=== PATIENT | female | born 1960 | race Caucasian/White ===

== ENCOUNTER 2018-03-19 14:27 | Outpatient (CLI) | payer BC | END 2018-03-19 14:28 | disposition home or self-care (01) | LOC: BICMAMMO 14:27 | PROVIDERS: ATTEND Internal Medicine | DX: Z12.31 Encounter for screening mammogram for malignant neoplasm of breast (principal); Z80.3 Family history of malignant neoplasm of breast | CPT/HCPCS: 77063; 77067 ==

== ENCOUNTER 2018-04-22 13:13 | Outpatient (CLI) | payer BC | END 2018-04-22 13:14 | disposition home or self-care (01) | LOC: BICMAMMO 13:13 | PROVIDERS: ATTEND Internal Medicine | DX: Z13.820 Encounter for screening for osteoporosis (principal); N92.4 Excessive bleeding in the premenopausal period | CPT/HCPCS: 77080 ==

== ENCOUNTER 2019-02-13 10:36 | Outpatient (CLI) | payer BC ==
--- NOTE | 2019-02-13 13:14 | MRI ---
EXAM: Right knee MRI without contrast: HISTORY: Right knee pain, internal derangement right knee COMPARISON: None FINDINGS: Multiplanar, multisequence MRI examination of the knees performed. Moderate joint effusion with distention of the suprapatellar recess. Generalized tricompartment carti shivani loss most marked involving the medial compartment and the femoral patellar compartment with some associated subchondral cystic changes of the patella evidence for chondromalacia patella. There is fairly prominent lateral patellar subluxation. Evidence for patellar trochlear dysplasia. No abnormal fat stranding in the superior lateral aspect of Hoffa's fat caliber. Nonspecific superficial infrapatellar fat stranding. Medial meniscus: Irregular posterior root tear Lateral meniscus: Unremarkable. Anterior cruciate ligament:Intact. Posterior cruciate ligament: Intact. Medial collateral ligament complex: Intact. Lateral collateral ligament complex: Intact. Quadriceps and patellar tendons: Intact. No evidence for acute osteochondral defect or abnormal marrow signal. IMPRESSION: Irregular posterior root tear of the medial meniscus. Joint effusion. Irregular cartilage loss includ ing the femoral patellar compartment with some chondromalacia patella and subchondral cystic changes. 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
== END 2019-02-13 10:37 | disposition home or self-care (01) ==
LOC: TBSIIMAG 10:36
PROVIDERS: ATTEND Orthopaedic Surgery
DX: M23.91 Unspecified internal derangement of right knee (principal); S83.241A Other tear of medial meniscus, current injury, right knee, initial encounter; M25.461 Effusion, right knee; S83.011A Lateral subluxation of right patella, initial encounter; M25.861 Other specified joint disorders, right knee

== ENCOUNTER 2019-03-20 14:56 | Outpatient (CLI) | payer BC ==
--- NOTE | 2019-03-20 15:22 | MMO ---
Bilateral MAMMO Bilat Screen [facility]. CLINICAL HISTORY: Patient is 58 years old and is seen for screening. The patient has no family history of breast cancer. The patient has no personal history of cancer. The patient has a history of bilateral Breast reduction in 1985 - benign. VIEWS: The views performed were: bilateral craniocaudal with tomosynthesis and bilateral mediolateral oblique with tomosynthesis. FILMS COMPARED: The present examination has been compared to prior imaging studies performed at [facility] on 03/11/2015, 03/15/2016, 03/18/2017 and 03/19/2018. MAMMOGRAM FINDINGS: The breasts are almost entirely fat. There are stable benign appearing calcifications seen in the right breast. There are no suspicious masses, suspicious calcifications, or new areas of architectural distortion. IMPRESSION: THERE IS NO MAMMOGRAPHIC EVIDENCE OF MALIGNANCY. A ROUTINE FOLLOW-UP MAMMOGRAM IN 1 YEAR IS RECOMMENDED. THE RESULTS OF THIS EXAM WERE SENT TO THE PATIENT. ACR BI-RADS Category 2 - Benign finding MAMMOGRAPHY NOTE: 1. A negative mammogram report should not delay a biopsy if a dominant of clinically suspicious mass is present. 2. Approximately 10% to 15% of breast cancers are not detected by mammography. 3. Adenosis and dense breasts may obscure an underlying neoplasm.
== END 2019-03-20 14:57 | disposition home or self-care (01) ==
LOC: BICMAMMO 14:56
PROVIDERS: ATTEND Internal Medicine
DX: Z12.31 Encounter for screening mammogram for malignant neoplasm of breast (principal)
CPT/HCPCS: 77063; 77067

== ENCOUNTER 2019-04-27 15:11 | Outpatient (CLI) | payer BC ==
--- NOTE | 2019-04-27 15:23 | RAD ---
EXAM: Two views chest PROVIDED CLINICAL HISTORY: Cough. 08/05/2014 COMPARISON: None FINDINGS: Cardiac silhouette and pulmonary vasculature are within normal limits. There is elevation of the lef t hemidiaphragm with gaseous distention of loops of bowel again noted beneath the left hemidiaphragm similar to prior exam. Lungs are clear. The osseous structures have a normal appearance . Chest is overall stable when compared to the prior exam. IMPRESSION: No acute cardiopulmonary process.
== END 2019-04-27 15:12 | disposition home or self-care (01) ==
LOC: BICRAD 15:11
PROVIDERS: ATTEND Internal Medicine
DX: R05 Cough (principal)
CPT/HCPCS: 71046

== ENCOUNTER 2020-03-23 14:17 | Outpatient (CLI) | payer BC ==
--- NOTE | 2020-03-23 14:58 | MMO ---
Bilateral MAMMO Bilat Screen [facility]. CLINICAL HISTORY: Patient is 59 years old and is seen for screening. The patient has the following family history of breast cancer: mother, at age 48, malignant (generic). The patient has no personal history of cancer. The patient has a history of bilateral Breast reduction in 1985 - benign. VIEWS: The views performed were: bilateral craniocaudal with tomosynthesis and bilateral mediolateral oblique with tomosynthesis. FILMS COMPARED: The present examination has been compared to prior imaging studies performed at [facility] on 03/15/2016, 03/18/2017, 03/19/2018 and 03/20/2019. This study has been interpreted with the assistance of computer-aided detection. MAMMOGRAM FINDINGS: The breasts are almost entirely fat. There are stable benign appearing calcifications seen in both breasts. There are no suspicious masses, suspicious calcifications, or new areas of architectural distortion. IMPRESSION: THERE IS NO MAMMOGRAPHIC EVIDENCE OF MALIGNANCY. A ROUTINE FOLLOW-UP MAMMOGRAM IN 1 YEAR IS RECOMMENDED. THE RESULTS OF THIS EXAM WERE SENT TO THE PATIENT. ACR BI-RADS Category 2 - Benign finding MAMMOGRAPHY NOTE: 1. A negative mammogram report should not delay a biopsy if a dominant of clinically suspicious mass is present. 2. Approximately 10% to 15% of breast cancers are not detected by mammography. 3. Adenosis and dense breasts may obscure an underlying neoplasm. Reported by: SURJIT CHESTER MD Electonically Signed: [id number]
== END 2020-03-23 14:18 | disposition home or self-care (01) ==
LOC: BICMAMMO 14:17
PROVIDERS: ATTEND Internal Medicine
DX: Z12.31 Encounter for screening mammogram for malignant neoplasm of breast (principal); Z80.3 Family history of malignant neoplasm of breast; Z98.890 Other specified postprocedural states
CPT/HCPCS: 77063; 77067

== ENCOUNTER 2020-04-29 07:35 | Outpatient (CLI) | payer BC, OTHER ==
[2020-04-30 13:14] LABS: SARS-CoV-2 MS2 Positive; SARS-CoV-2 N Gene Negative; SARS-CoV-2 S Gene Negative; SARS-CoV-2 orf1ab Negative
== END 2020-04-29 07:36 | disposition home or self-care (01) ==
LOC: LABBT 07:35
PROVIDERS: ATTEND Internal Medicine Gastroenterology
DX: Z01.812 Encounter for preprocedural laboratory examination (principal); Z11.59 Encounter for screening for other viral diseases; Z83.71 Family history of colonic polyps
CPT/HCPCS: 87635; U0003

== ENCOUNTER 2020-05-04 06:37 | Day surgery (SDC) | payer BC ==
[2020-04-28 11:41] VITALS: BMI 44.9
[2020-05-04] MEDS ORDERED: PROPOFOL 200 MG/20 ML VIAL ONE (09:29)
--- NOTE | 2020-05-04 10:04 | OP ---
DATE OF PROCEDURE: 05/04/2020 PROCEDURE PERFORMED: Colonoscopy. PREMEDICATION: Given by Anesthesiology Department. PREPROCEDURE DIAGNOSES: 1. Colon screening. 2. Family history of colon polyps, father. POSTPROCEDURE DIAGNOSIS: Normal colon exam. PROCEDURE IN DETAIL: Written consents were obtained prior to procedure. After adequate sedation, rectal exam was performed was normal. The endoscope was advanced to the cecum with ease. The quality of the bowel prep was good. The cecum, appendiceal orifice, and ileocecal valve were visualized and appeared normal. The ascending colon, hepatic flexure, transverse colon, splenic flexure, descending colon, and rectosigmoid colon all appeared normal. Retroflexion did not show any abnormality. The patient tolerated the procedure well. ASSESSMENT: Normal colon exam. RECOMMENDATIONS: Repeat colorectal screening exam in 10 years. Job ID: [id number]
== END 2020-05-04 10:42 | disposition home or self-care (01) ==
LOC: SDC 06:37
PROVIDERS: ATTEND Internal Medicine Gastroenterology
PROC: 0DJD8ZZ Inspection of Lower Intestinal Tract, Via Natural or Artificial Opening Endoscopic (ICD-10-PCS; principal; 2020-05-04)
DX: Z12.11 Encounter for screening for malignant neoplasm of colon (principal); I10 Essential (primary) hypertension; F32.9 Major depressive disorder, single episode, unspecified; Z79.899 Other long term (current) drug therapy; Z83.71 Family history of colonic polyps; Z88.6 Allergy status to analgesic agent
CPT/HCPCS: J2704

== ENCOUNTER 2021-04-06 15:02 | Outpatient (CLI) | payer BC | END 2021-04-06 15:03 | disposition home or self-care (01) | LOC: BICMAMMO 15:02 | PROVIDERS: ATTEND Internal Medicine | DX: Z12.31 Encounter for screening mammogram for malignant neoplasm of breast (principal); Z80.3 Family history of malignant neoplasm of breast; Z98.82 Breast implant status | CPT/HCPCS: 77063; 77067 ==

== ENCOUNTER 2022-04-09 08:18 | Outpatient (CLI) | payer BC | END 2022-04-09 08:19 | disposition home or self-care (01) | LOC: BICMAMMO 08:18 | PROVIDERS: ATTEND Family Medicine | DX: Z12.31 Encounter for screening mammogram for malignant neoplasm of breast (principal); Z80.3 Family history of malignant neoplasm of breast; Z98.890 Other specified postprocedural states | CPT/HCPCS: 77063; 77067 ==

== ENCOUNTER 2023-05-17 09:53 | Outpatient (CLI) | payer BC | END 2023-05-17 09:54 | disposition home or self-care (01) | LOC: BICMAMMO 09:53 | PROVIDERS: ATTEND Family Medicine | DX: Z12.31 Encounter for screening mammogram for malignant neoplasm of breast (principal); Z80.3 Family history of malignant neoplasm of breast; Z91.89 Other specified personal risk factors, not elsewhere classified | CPT/HCPCS: 77063; 77067 ==

== ENCOUNTER 2024-05-19 10:50 | Outpatient (CLI) | payer BC | END 2024-05-19 10:51 | disposition home or self-care (01) | LOC: BICMAMMO 10:50 | PROVIDERS: ATTEND Family Medicine | DX: Z12.31 Encounter for screening mammogram for malignant neoplasm of breast (principal); Z80.3 Family history of malignant neoplasm of breast; Z98.890 Other specified postprocedural states | CPT/HCPCS: 77063; 77067 ==

== ENCOUNTER 2025-06-16 10:56 | Outpatient (CLI) | payer MEDICARE, BC | END 2025-06-16 10:57 | disposition home or self-care (01) | LOC: ULT 10:56 | PROVIDERS: ATTEND Family Medicine | DX: E28.0 Estrogen excess (principal) | CPT/HCPCS: 76856 ==

== ENCOUNTER 2025-07-06 10:19 | Outpatient (CLI) | payer MEDICARE, BC | END 2025-07-06 10:20 | disposition home or self-care (01) | LOC: BICMAMMO 10:19 | PROVIDERS: ATTEND Family Medicine | DX: Z78.0 Asymptomatic menopausal state (principal) | CPT/HCPCS: 77080 ==